=== PATIENT | male | born 1990 | race Hispanic/Latino ===

== ENCOUNTER 2020-08-06 18:40 | Emergency (ER) | payer OTHER ==
[~2020-08-06] VITALS: Ht 162.6 cm; Wt 83.9 kg
[2020-08-06] MEDS ORDERED: IBUPROFEN IB200 MG PO (19:15)
[2020-08-06] MEDS ORDERED: ACETAMINOPHEN500 MG PO (19:15)
[2020-08-06] MEDS ORDERED: ACETAMINOPHEN 325 MG TAB PO ONE (19:15)
[2020-08-06] MEDS ORDERED: KETOROLAC TROMETHAMINE 30 MG/ML VIAL IM ONE (19:15)
[2020-08-06] MEDS ORDERED: ACETAMINOPHEN 325 MG TAB ONE (19:43)
[2020-08-06] MEDS ORDERED: KETOROLAC TROMETHAMINE 30 MG/ML VIAL ONE (19:43)
[2020-08-06 20:00] VITALS: BP 125/80
== END 2020-08-06 20:00 | disposition home or self-care (01) ==
LOC: FSED 19:05
DX: S33.9XXA Sprain of unspecified parts of lumbar spine and pelvis, initial encounter (principal); S83.92XA Sprain of unspecified site of left knee, initial encounter; M79.672 Pain in left foot; W22.09XA Striking against other stationary object, initial encounter; Y93.B9 Activity, other involving muscle strengthening exercises; Y92.84 Military training ground as the place of occurrence of the external cause
CPT/HCPCS: 72100; 73560; 73620; 96372; 99283; J1885